=== PATIENT | male | born 1960 | race Caucasian/White ===

== ENCOUNTER 2020-10-24 07:17 | Day surgery (SDC) | payer OTHER ==
[~2020-10-24] VITALS: Ht 177.8 cm; Wt 110.0 kg
[2020-10-24 08:00] VITALS: BP 213/136
--- NOTE | 2020-10-24 08:00 | NUR ---
PATIENT ARRIVES TO ROOM 276 AMBULATORY WITH ANR NURSE WITH STEADY GAIT. CONSENT OBTAINED. VS OBTAINED. ROWDY NOTIFIED. NEWORDERS RECEIVED. ADMISSION ASSESSMENT COMPLETED AT THIS TIME. IV ESTABLISHED.LABS OBTAINED AND SENT FOR REFERENCE.ORIENTED PATIENT TO ROOMAND UNIT. CALLLIGHT IN REACH. WILL COTNINUE TO MONITOR.
[2020-10-24 08:45] LABS: HEMATOCRIT 51.6 % (39.0-50.0); HEMOGLOBIN 18.3 g/dl (14.0-18.0); IMMATURE GRANULOCYTES 0.3 % (0.0-5.0); MEAN CELL VOLUME 88.1 fL CALC (80.0-100.0); MEAN CORPUSCULAR HGB 31.2 pG CALC (26.0-32.0); MEAN CORPUSCULAR HGB CONC 35.5 g/dL CAL (32.0-36.0); NEUT# 11.3 thou/uL (1.82-7.42); RED BLOOD COUNT 5.86 mill/uL (4.70-6.10); RED CELL DISTRI WIDTH 12.9 % (11.5-15.5)
[2020-10-24 09:00] LABS: ALBUMIN 4.4 g/dL (3.2-5.0); ALKALINE PHOSPHATASE 94 u/l (38-126); ANION GAP 18 (6-22 (CALC)); BILIRUBIN, TOTAL 0.9 mg/dL (0.0-1.4); BUN 14 mg/dL (9-20); BUN/CREATININE RATIO 12 (12-20 (CALC)); CARBON DIOXIDE 23 mmol/l (22-30); CHLORIDE 99 mmol/l (95-108); CREATININE 1.2 mg/dL (0.7-1.3); GFR > 60 ML/MIN (>=60 (CALC)); GFR FOR AFR.AMER. > 60 ML/MIN (>=60 (CALC)); POTASSIUM 4.2 mmol/l (3.5-5.1); SGOT/AST 26 u/l (17-59); SODIUM 136 mmol/l (137-146); TOTAL PROTEIN 8.1 g/dL (6.3-8.2)
[2020-10-24 10:00] VITALS: BP 176/106
--- NOTE | 2020-10-24 12:00 | NUR ---
PATIENT TO ANR PROCEDURE AT THIS TIME VIA BED.
--- NOTE | 2020-10-24 18:10 | NUR ---
PATIENTRETURNS TO ROOM 277 VIA BED POST ANR PROCEDURE. VSS AT THIS TIME. ANR NURSE REMAINS AT BEDSIDE AT THIS TIME. CALL LIGHT IN REACH. BED ALARM IN PLACE FOR PATIENT SAFETY. WILL CONTINUE TO MONITOR.
[2020-10-24 19:50] VITALS: BP 164/90
--- NOTE | 2020-10-24 19:50 | NUR ---
REPORT GIVEN AT THE BEDSIDE BY JULINAO. PATIENT IS ALERT AND ORIENTED. HOME CPAP PLACED ON PATIENT WITH 2L O2. RESP EVEN AND UNLABORED. NO S/S OF DISTRESS NOTED. FALL AND SAFTEY PRECAUTIONS IN PLACE. IV INFUSING LR AT KVO. 200 ML OF URINE VOIDED. ANR STAFF REVIEWED PLAN OF CARE. PATIENT INFORMED TO CALL WITH ANY QUESTIONS OR CONCERNS.
--- NOTE | 2020-10-24 20:52 | NUR ---
VOIDED 300ML
--- NOTE | 2020-10-24 21:17 | NUR ---
PATIENT VOIDED 400ML
--- NOTE | 2020-10-24 22:15 | NUR ---
PATIENT REQUESTING MEDICATION FOR AGITATION AND SLEEP. ATIVAN GIVEN PER MD ORDERS. PM MEDICATIONS GIVEN WHOLE WITH WATER
--- NOTE | 2020-10-25 00:40 | NUR ---
PATIENT UP TO USE THE URINAL AND REQUESTING JUICE
[2020-10-25 04:25] VITALS: BP 146/75
--- NOTE | 2020-10-25 05:21 | NUR ---
PATIENT AMBULATING TO BATHROOM. STEADY ON HIS FEET. IV FLUIDS SALINE LOCKED, PATIENT HAS GOOD ORAL INTAKE.
[2020-10-25 06:24] LABS: ALKALINE PHOSPHATASE 77 u/l (38-126); ANION GAP 14 (6-22 (CALC)); BILIRUBIN, TOTAL 0.7 mg/dL (0.0-1.4); BUN 12 mg/dL (9-20); BUN/CREATININE RATIO 10 (12-20 (CALC)); CARBON DIOXIDE 25 mmol/l (22-30); CHLORIDE 99 mmol/l (95-108); CREATININE 1.2 mg/dL (0.7-1.3); GFR > 60 ML/MIN (>=60 (CALC)); GFR FOR AFR.AMER. > 60 ML/MIN (>=60 (CALC)); SGOT/AST 26 u/l (17-59); SODIUM 133 mmol/l (137-146); TOTAL PROTEIN 6.5 g/dL (6.3-8.2)
[2020-10-25 06:37] LABS: ALBUMIN 3.5 g/dL (3.2-5.0)
--- NOTE | 2020-10-25 06:45 | NUR ---
REPORT RECEIVED FROM HU FREEMAN. CARE ASSUMED.
[2020-10-25 07:20] VITALS: BP 183/101
--- NOTE | 2020-10-25 07:20 | NUR ---
PATIENT RESTING IN BED AWAKE. PATIENT IS ALERT AND ORIENTED X3. SHIFT ASSESSMENT COMPLETED AT THIS TIME. CALL LIGHT IN REACH. WILL CONTINUE TO MONITOR.
[2020-10-25 08:46] VITALS: BP 183/101
--- NOTE | 2020-10-25 11:00 | NUR ---
PATIENT MEDICATED WITH DC MEDS. AWAITING DISCHARGE AT THIS TIME.
--- NOTE | 2020-10-25 12:25 | NUR ---
Discharge instructions given. Patient verbalizes understanding of same. Discharged in stable condition via Ambulatory to Home with staff. All belongings sent with pt.
== END 2020-10-25 12:25 | disposition home or self-care (01) | DRG 897 ==
LOC: EDBD 07:17 → MS2 07:17 → ANR 07:17 → MS2 07:18 → ANR 16:17
PROVIDERS: ATTEND Anesthesiology
DX: F11.20 Opioid dependence, uncomplicated (principal)
CPT/HCPCS: J2060; J2354